=== PATIENT | female | born 1985 | race Caucasian/White ===

== ENCOUNTER 2018-03-04 12:12 | Day surgery (SDC) | payer OTHER ==
[2018-03-04] MEDS ORDERED: PROPOFOL 60 ML (13:32)
[2018-03-04] MEDS ORDERED: LIDOCAINE 2% (SDV) 5 ML INJ (13:33)
== END 2018-03-04 15:10 | disposition home or self-care (01) ==
LOC: GIL 12:12
DX: R19.4 Change in bowel habit (principal); K29.60 Other gastritis without bleeding; K64.8 Other hemorrhoids; I10 Essential (primary) hypertension; E66.01 Morbid (severe) obesity due to excess calories; Z68.41 Body mass index [BMI] 40.0-44.9, adult
CPT/HCPCS: 43239